=== PATIENT | female | born 1995 | race Caucasian/White ===

== ENCOUNTER → 2021-11-01 | Outpatient (CLI) | payer MEDICAID ==
[2021-11-01 09:37] LABS: BASO # 0.02 K/mm3 (0.02-0.10); EOS # 0.05 K/mm3 (0.04-0.40); EOS % 1.3 % (1.0-5.0); HEMATOCRIT 39.4 % (37.0-47.0); HEMOGLOBIN 13.4 g/dL (12.5-16.0); LYMPH# 0.97 K/mm3 (1.50-4.00); MEAN CELL VOLUME 88 fl (78-100); MEAN CORPUSCULAR HEMOGLOBIN 30 pg (27-31); MEAN CORPUSCULAR HGB CONC 34 g/dL (33-37); MEAN PLATELET VOLUME 8.6 fl (7.4-10.4); MONO # 0.22 K/mm3 (0.20-0.80); NEU # 2.55 K/mm3 (1.40-6.50); PLATELET COUNT 246 K/mm3 (130-400); RED BLOOD COUNT 4.46 M/mm3 (4.10-5.30); RED CELL DISTRIBUTION WIDTH 12.6 % (11.5-14.5); WHITE BLOOD COUNT 3.8 K/mm3 (4.8-10.8)
[2021-11-01 09:47] LABS: TOTAL PROTEIN 7.3 g/dL (6.4-8.3)
[2021-11-01 09:48] LABS: TOTAL BILIRUBIN 0.6 mg/dL (0.2-1.2)
[2021-11-01 09:52] LABS: DIRECT BILIRUBIN 0.3 mg/dL (0.0-0.5)
== END ==
LOC: LAB 09:18
PROVIDERS: Nurse Practitioner Family
DX: Z79.899 Other long term (current) drug therapy (principal)

== ENCOUNTER 2021-11-22 13:02 | Outpatient (RCR) | payer BC, MEDICAID | END 2021-12-13 | disposition still patient (30) | LOC: PT | DX: M25.561 Pain in right knee (principal) ==

== ENCOUNTER → 2021-12-01 | Outpatient (CLI) | payer BC, MEDICAID | LOC: LAB 12:15 | DX: Z79.899 Other long term (current) drug therapy (principal) ==

== ENCOUNTER 2021-12-14 08:00 | Outpatient (RCR) | payer BC, MEDICAID | END 2022-01-12 | disposition home or self-care (01) | LOC: PT | DX: M25.561 Pain in right knee (principal) ==

== ENCOUNTER 2024-01-10 06:47 | Emergency (ER) | payer MEDICAID ==
[~2024-01-10] VITALS: Ht 162.6 cm; Wt 54.5 kg
[~2024-01-10 06:47] MED LIST: CEPHALEXIN500 M1 PO; PHENERGAN 25 TA25 MG PO; PREMIERPRO RX5 MG/GM OP
[2024-01-10] MEDS ORDERED: SILVADENE(20 GM/1 TU TP (08:11)
[2024-01-10] MEDS ORDERED: BACITRACIN TOP O1 TU TOP (08:11)
[2024-01-10 08:40] VITALS: BP 105/79
== END 2024-01-10 08:45 | disposition home or self-care (01) ==
LOC: ED 06:47
DX: T28.3XXA Burn of internal genitourinary organs, initial encounter (principal); X12.XXXA Contact with other hot fluids, initial encounter